=== PATIENT | female | born 1950 | race Two or more races ===

== ENCOUNTER 2024-04-23 13:03 | Emergency (ER) | payer OTHER ==
[~2024-04-23] VITALS: Ht 160 cm; Wt 59.0 kg
[2024-04-23] MEDS ORDERED: COZAAR50 MG (14:02)
[2024-04-23] MEDS ORDERED: XIGDUO XR 10 M1 EAC1 (14:02)
[2024-04-23] MEDS ORDERED: PRAVASTATIN SOD40 MG (14:03)
[2024-04-23] MEDS ORDERED: VITAMIN D31 ML (14:03)
[2024-04-23] MEDS ORDERED: LEVOTHYROXINE25 MCG (14:03)
[2024-04-23] MEDS ORDERED: ZETIA10 MG (14:03)
[2024-04-23] MEDS ORDERED: CHILDREN'S ASPI81 MG (14:03)
[2024-04-23] MEDS ORDERED: ALENDRONATE SOD70 MG (14:04)
[2024-04-23] MEDS ORDERED: OMEPRAZOLE-BIC1 EAC1 (14:04)
[2024-04-23] MEDS ORDERED: ESCITALOPRA5 MG/5 ML (14:04)
[2024-04-23] MEDS ORDERED: VITAMIN B12500 MCG (14:04)
[2024-04-23] MEDS ORDERED: MEMANTINE HCL10 MG (14:04)
[2024-04-23] MEDS ORDERED: 0.9 % SODIUM CHLORIDE 500 ML IV ONE (15:15)
[2024-04-23 16:24] LABS: HEMATOCRIT 43.9 % (36.0-45.00); HEMOGLOBIN 14.4 g/dL (12.0-15.00); MEAN CELL VOLUME 87.9 fL (80.00-100.00); MEAN CORPUSCULAR HEMOGLOBIN 28.8 pg (27.00-32.0); MEAN CORPUSCULAR HGB CONC 32.8 g/dl (32.0-36.0); PLATELET COUNT 217 K/uL (150-450)
[2024-04-23 16:28] LABS: INR 1.01; PARTIAL THROMBOPLASTIN TIME 26.5 SECONDS (22.0-34.0)
[2024-04-23 16:33] LABS: ALBUMIN 3.7 gm/dL (3.4-5.0); BILIRUBIN TOTAL 0.71 mg/dL (0.3-1.2); CREATININE SERUM 0.82 mg/dL (0.55-1.02); GFR 67.96; GLOBULINA 3.1 G/DL (2.4-3.5); POTASSIUM 4.45 mEq/L (3.5-5.1); TOTAL PROTEIN 6.8 gm/dL (6.4-8.2)
[2024-04-23 18:04] LABS: PH,URINE 5.5 (5.0-8.0); URINE APPEARANCE Clear; URINE BILIRRUBIN Negative (NEGATIVE); URINE BLOOD Trace; URINE COLOR Yellow; URINE KETONE Negative (NEGATIVE); URINE LEUKOCYTE Moderate; URINE NITRATE Negative; URINE PROTEIN Negative (NEGATIVE); URINE UROBILINOGEN 0.2 E.U./dl
[2024-04-23 18:07] LABS: URINE BACTERIA 1322.9 uL (0.0-1933); URINE EPITHELIAL CELLS 38.3 uL (0.0-38.8); URINE WBC 223.9 uL (0.0-23.2)
[2024-04-23 18:08] LABS: URINE GLUCOSE >=1000 MG/DL (NEGATIVE)
[2024-04-23] MEDS ORDERED: MIRALAX510 GM PO (18:44)
[2024-04-23] MEDS ORDERED: BACTRIM DS TAB1 EACH PO (18:44)
== END 2024-04-23 18:53 ==
LOC: ER 13:04
PROVIDERS: Nurse Practitioner Family
DX: N39.0 Urinary tract infection, site not specified (principal); R31.9 Hematuria, unspecified; I10 Essential (primary) hypertension; E03.8 Other specified hypothyroidism; E11.9 Type 2 diabetes mellitus without complications; Z79.84 Long term (current) use of oral hypoglycemic drugs
CPT/HCPCS: 36415; 74176; 96365; 96366; 99284; J7042

== ENCOUNTER 2024-04-30 13:07 | Emergency (ER) | payer OTHER ==
[~2024-04-30] VITALS: Ht 160 cm; Wt 77.1 kg
[~2024-04-30 13:07] MED LIST: ALENDRONATE SOD70 MG; BACTRIM DS TAB1 EACH PO; CHILDREN'S ASPI81 MG; COZAAR50 MG; ESCITALOPRA5 MG/5 ML; LEVOTHYROXINE25 MCG; MEMANTINE HCL10 MG; MIRALAX510 GM PO; OMEPRAZOLE-BIC1 EAC1; PRAVASTATIN SOD40 MG; VITAMIN B12500 MCG; VITAMIN D31 ML; XIGDUO XR 10 M1 EAC1; ZETIA10 MG
[2024-04-30] MEDS ORDERED: TAMSULOSIN HCL 0.4 MG CAP PO ONE ×2 (13:37→13:45)
[2024-04-30] MEDS ORDERED: KETOROLAC TROMETHAMINE 30 MG VIAL ONE (13:37)
[2024-04-30] MEDS ORDERED: KETOROLAC TROMETHAMINE 30 MG VIAL IV ONE (13:45)
[2024-04-30 14:04] LABS: PH,URINE 5.5 (5.0-8.0); URINE APPEARANCE Clear; URINE BILIRRUBIN Negative (NEGATIVE); URINE BLOOD Negative; URINE COLOR Yellow; URINE KETONE Negative (NEGATIVE); URINE LEUKOCYTE Negative; URINE NITRATE Negative; URINE PROTEIN Negative (NEGATIVE); URINE UROBILINOGEN 0.2 E.U./dl
[2024-04-30 14:05] LABS: URINE BACTERIA 28.9 uL (0.0-1933); URINE EPITHELIAL CELLS 13.2 uL (0.0-38.8); URINE RBC 3.3 uL (0.0-20.8); URINE WBC 12.1 uL (0.0-23.2)
[2024-04-30 14:07] LABS: HEMATOCRIT 43.9 % (36.0-45.00); HEMOGLOBIN 14.1 g/dL (12.0-15.00); MEAN CELL VOLUME 87.7 fL (80.00-100.00); MEAN CORPUSCULAR HEMOGLOBIN 28.3 pg (27.00-32.0); MEAN CORPUSCULAR HGB CONC 32.2 g/dl (32.0-36.0); PLATELET COUNT 234 K/uL (150-450)
[2024-04-30 14:11] LABS: URINE GLUCOSE >=1000 MG/DL (NEGATIVE)
[2024-04-30 14:32] LABS: CALCIUM 9.6 mg/dL (8.5-10.1); CREATININE SERUM 0.99 mg/dL (0.55-1.02); GFR 54.68; POTASSIUM 4.73 mEq/L (3.5-5.1)
== END 2024-04-30 15:43 | disposition home or self-care (01) ==
LOC: ER 13:09
PROVIDERS: Emergency Medicine
DX: R10.9 Unspecified abdominal pain (principal); E78.00 Pure hypercholesterolemia, unspecified; I10 Essential (primary) hypertension; E03.8 Other specified hypothyroidism; E11.9 Type 2 diabetes mellitus without complications; Z79.84 Long term (current) use of oral hypoglycemic drugs
CPT/HCPCS: 36415; 96365; 99282; J1885